=== PATIENT | male | born 1965 | race Caucasian/White ===

== ENCOUNTER 2017-11-04 14:54 | Inpatient (IN) | payer OTHER, MEDICAID ==
[~2017-11-04] VITALS: Ht 188 cm; Wt 92.9 kg
[2017-11-04] MEDS ORDERED: SODIUM CHLORIDE FLUSH 10ML SYR IVF ONE (16:00)
[2017-11-04] MEDS ORDERED: PLEASE ENTER ALLERGIES MC SCH (16:00)
[2017-11-04] MEDS ORDERED: PROPARACAINE OPHTH 0.5%, 15ML ONE (16:00)
[2017-11-04 16:16] LABS: BASOPHILS # (AUTO) 0.07 x10^3/uL (0-0.1); BASOPHILS % (AUTO) 1 % (0-1); EOSINOPHILS # (AUTO) 0.18 x10^3/uL (0-0.4); EOSINOPHILS % (AUTO) 3 % (1-7); LYMPHOCYTES # (AUTO) 2.28 x10^3/uL (1-3.4); LYMPHOCYTES % (AUTO) 35 % (22-44); MD NO; MEAN CORPUSCULAR HGB CONC 33.3 g/dL (33.2-36.2); MEAN CORPUSCULAR VOLUME 93.2 fL (81-97); MEAN PLATELET VOLUME 7.7 fL (7.4-10.4); MONOCYTES # (AUTO) 0.41 x10^3/uL (0.2-0.8); MONOCYTES % (AUTO) 6 % (2-9); NEUTROPHILS % (AUTO) 54 % (42-75); PLATELET COUNT 292 x10^3/uL (130-400); RED BLOOD COUNT 4.06 x10^6/uL (4.38-5.82); RED CELL DISTRIBUTION WIDTH 15.2 % (9.4-14.8)
[2017-11-04 16:24] LABS: ALBUMIN 3.9 g/dL (3.4-5.0); ANION GAP 8 mmol/L (5-15); CALCIUM 9.4 mg/dL (8.5-10.1); CHLORIDE 104 mmol/L (98-107); CREATININE 1.13 mg/dL (0.7-1.3)
[2017-11-04] MEDS ORDERED: CEFTRIAXONE 1,000 MG in SODIUM CHLORIDE 0.9% 50 ML IVPB ONE (16:30)
[2017-11-04] MEDS ORDERED: SODIUM CHLORIDE 0.9% 1,000 ML IV SCH (17:19)
[2017-11-04] MEDS ORDERED: ENOXAPARIN 40 MG/0.4 ML SQ SCH (17:30)
[2017-11-04] MEDS ORDERED: LISI-167 PO (17:56)
[2017-11-04] MEDS ORDERED: HYDR12.53 PO (17:56)
[2017-11-04 18:08] LABS: ANION GAP 9 mmol/L (5-15); CALCIUM 9.1 mg/dL (8.5-10.1); CHLORIDE 105 mmol/L (98-107); CREATININE 1.13 mg/dL (0.7-1.3)
[2017-11-04 18:22] VITALS: BP 121/77
[2017-11-04] MEDS: CLINDAMYCIN PMX 300MG/50ML 50 ML IV SCH (19:49)
[2017-11-04] MEDS: ACETAMINOPHEN 325 MG TABLET PO PRN (19:53)
[2017-11-05 00:03] VITALS: BP 111/73
[2017-11-05] MEDS: CLINDAMYCIN PMX 300MG/50ML 50 ML IV SCH ×2 (02:05→07:31)
[2017-11-05 07:23] VITALS: BP 112/72
[2017-11-05] MEDS: ACETAMINOPHEN 325 MG TABLET PO PRN (07:31)
[2017-11-05] MEDS ORDERED: LISINOPRIL 10 MG TABLET PO SCH (09:00)
== END 2017-11-05 10:50 | disposition home or self-care (01) | DRG 603 ==
LOC: ED 17:03 → SUATTDRO 17:18 → EDIP 17:32 → 3NW 18:32
PROVIDERS: ADMIT Internal Medicine; ATTEND Internal Medicine
DX: L03.213 Periorbital cellulitis (principal); I10 Essential (primary) hypertension; H54.7 Unspecified visual loss; S09.93XA Unspecified injury of face, initial encounter; Y99.8 Other external cause status; F17.200 Nicotine dependence, unspecified, uncomplicated; D64.9 Anemia, unspecified; Y93.89 Activity, other specified; Y92.89 Other specified places as the place of occurrence of the external cause; Z89.411 Acquired absence of right great toe; X58.XXXA Exposure to other specified factors, initial encounter
CPT/HCPCS: 36415; 70481; 80048; 82040; 83605; 85025; 87040; 96365; 99285; J0696; J1650; J7030